=== PATIENT | male | born 1980 | race Caucasian/White ===

== ENCOUNTER 2024-02-21 11:00 | Emergency (ER) | payer OTHER, SELFPAY ==
[2024-02-21 11:07] VITALS: BP 118/85
[2024-02-21] MEDS: TYLENOL 650 MG PO (11:36)
[2024-02-21] MEDS: MOTRIN 400 MG PO (11:36)
--- NOTE | 2024-02-21 11:45 | ED.GENMED ---
History of Present Illness
General
Chief Complaint: Musculo-Skeletal Complaint
Source: patient
Exam Limitations: none
Time Seen by Provider: 02/21/24 11:23
Nursing documentation reviewed up to this point in time: agreed with
History of Present Illness
History of Present Illness:
Patient presents to ED secondary to persistent right knee pain, after twisting his knee playing soccer with his children. Patient did not fall. Denies any other injuries. Patient has had intermittent episodes of severe pain causing him to be
nauseous. Patient has not take any pain medications. Denies previous history of knee injuries. Denies loss of sensation or weakness. Patient does report knee swelling.
Past History
Past History
ED Past Medical History: GERD
ED Past Surgical History: None
Social History
Personal:
Review of Systems
Review of Systems
Allergies reviewed?: Yes
All Other Systems: ROS reviewed and negative except as documented in HPI and ROS
Constitutional: Reports no symptoms; Denies fever or chills
Musculoskeletal: Reports joint pain (right knee) and joint swelling (right knee)
Skin: Reports no symptoms
Neurological: Reports no symptoms
Phy Exam
Physical Exam
Physical Exam:
Physical Exam
General: mild painful distress, not acutely ill. afebrile
Head: nc/at. eomi
Neck: supple. no meningeal signs.
Neuro: alert and oriented. no focal neurological deficits
Skin: no rash
Psychiatric: well kept. interactive and cooperative
Extremities: mild swelling noted along with tenderness to palpation over medial aspect of right knee. negative valgus and varus maneuver. negative anterior drawer test.
Course
Orders/Labs/Results
Orders:
Orders
02/21/24 11:12
Knee, Right 4 or More Views [CR Knee- Right 4 Or More View*] Urgent
Comment: n
Reason For Exam: t
02/21/24 11:31
Crutches-Treatment ONCE
Knee Immobilizer Right-Treatme ONCE
Acetaminophen [Tylenol] 650 mg PO NOW STA
Ibuprofen [Motrin] 400 mg PO NOW STA
Vital Signs
Initial and Last Documented VS:
Initial Vital Signs
Temp Pulse Resp BP Pulse Ox
98.4 F 75 16 118/85 99
02/21/24 11:07 02/21/24 11:07 02/21/24 11:07 02/21/24 11:07 02/21/24 11:07
Last Documented Vital Signs
Temp Pulse Resp BP Pulse Ox
98.4 F 75 16 118/85 99
02/21/24 11:07 02/21/24 11:07 02/21/24 11:07 02/21/24 11:07 02/21/24 11:07
MDM/Problems Addressed
MDM/Problems Addressed:
History and exam concerning for potential MCL injury. Fortunately, x-ray without any acute findings and patient remains neurovascularly intact. Patient will be fitted with knee immobilizer and provided with crutches, to be utilized until
reevaluation with referred orthopedic surgeon.
*Critical Care Note
Total Time (30-74mins, 75-104mins- exclusive of procedures): Not Applicable
ED Attending Note
-
Portions of this chart may have been created with voice recognition software.� Occasional wrong word or��sound alike� substitutions may have occurred due to the inherent limitations of voice recognition software.
Discharge Plan
Departure
Patient Disposition: Home (Routine Discharge)
Date of Disposition: 02/21/24
Time of Disposition: 11:54
Patient with high blood pressure during this ER visit?: Yes
Condition: Good
Discharge Problem:
Knee sprain
Instructions: How to Use Crutches, Knee Immobilizer (DC), Knee Sprain (DC)
Referrals:
Debra Cabrera I., DO [Active] -
Activity Restrictions/Additional Instructions:
As discussed, please follow-up with referred orthopedic surgeon for further evaluation and treatment.
Interventions
Interventions:
*Risk Screen - Suicide Last Done: 02/21/24 11:45
*General Assessment Last Done: 02/21/24 11:45
*Neglect/Abuse Screening Last Done: 02/21/24 11:45
ED- Fall Risk Assessment Last Done: 02/21/24 11:53
*ED COVID-19 Vaccine History Last Done: 02/21/24 11:53
*Nursing Disposition Last Done: 02/21/24 11:45
ED-Musculoskeletal Assessment Last Done: 02/21/24 11:53
Discharge Date and Time
Discharge Date/Time: 02/21/24 12:30
Print Language: YI
== END 2024-02-21 12:30 | disposition home or self-care (01) ==
LOC: EMR 11:00
PROVIDERS: EMERGENCY PHYSICIAN Emergency Medicine; FAMILY PHYSICIAN Family Medicine
DX: S83.91XA Sprain of unspecified site of right knee, initial encounter (principal); Y93.66 Activity, soccer; K21.9 Gastro-esophageal reflux disease without esophagitis
CPT/HCPCS: 99283; 29505; 73564